=== PATIENT | male | born 1990 | race Caucasian/White ===

== ENCOUNTER 2021-12-16 04:10 | Emergency (ER) | payer OTHER ==
[~2021-12-16] VITALS: Ht 172.7 cm; Wt 89.1 kg
[2021-12-16] MEDS ORDERED: DIAZEPAM 5 MG/ML 2ML CPJ IV ONE ×2 (05:45)
[2021-12-16 05:53] LABS: CHLORIDE 104 mEq/L (98-107)
[2021-12-16 06:34] LABS: BASOPHILS % 1.2 % (0.0-2.0); EOSINOPHILS % 4.8 % (0.0-5.0); HEMATOCRIT. 43.1 % (42.0-52.0); HEMOGLOBIN. 14.7 g/dL (14.0-18.0); LYMPHOCYTES % 27.6 % (20.0-50.0); MEAN CORPUSCULAR HEMOGLOBIN 28.5 pg (28.0-32.0); MEAN CORPUSCULAR VOLUME 83.3 fL (80.0-94.0); MEAN PLATELET VOLUME 7.8 fl (7.4-10.4); NEUTROPHILS % 56.4 % (40.0-76.0); PLATELET 195 x1000/uL (130-400); RED BLOOD CELL COUNT 5.18 mill/uL (4.7-6.1); RED CELL DISTRIBUTION WIDTH 12.8 % (11.6-14.6)
[2021-12-16 07:47] VITALS: BP 128/69
== END 2021-12-16 08:01 | disposition home or self-care (01) ==
LOC: ER 04:10
DX: R07.89 Other chest pain (principal); R00.0 Tachycardia, unspecified; R20.2 Paresthesia of skin; F41.9 Anxiety disorder, unspecified; Z72.0 Tobacco use
CPT/HCPCS: 36415; 71045; 76604; 80053; 83880; 84484; 85025; 93005; 93880; 96374; 99285